=== PATIENT | female | born 1955 | race Caucasian/White ===

== ENCOUNTER 2017-12-28 03:08 | Emergency (ER) | payer MEDICARE, OTHER ==
[2017-12-28] MEDS ORDERED: HYDROmorphone 1 MG/ML CARPUJECT IM STA ×2 (03:32→05:02)
--- NOTE | 2017-12-28 04:28 | XRAY Report ---
Reason: pain after a fall Procedure Date: 12/28/2017 Accession Number: [id number] / [id number] Procedure: XR - Wrist 3 View RT CPT Code: FULL RESULT: EXAM: RIGHT WRIST RADIOGRAPHY EXAM DATE: 12/28/2017 03:45 AM. CLINICAL HISTORY: Pain after a fall. COMPARISON: None. TECHNIQUE: 3 views. FINDINGS: Bones: Normal. No fractures or bone lesions. Joints: Normal. No subluxations. Soft Tissues: Normal. No soft tissue swelling. IMPRESSION: No evidence for fractures of the right wrist. RADIA
--- NOTE | 2017-12-28 04:29 | XRAY Report ---
Reason: fall Procedure Date: 12/28/2017 Accession Number: [id number] / [id number] Procedure: XR - Chest 1 View X-Ray CPT Code: 09797 FULL RESULT: EXAM: CHEST RADIOGRAPHY EXAM DATE: 12/28/2017 03:41 AM. CLINICAL HISTORY: Fall. COMPARISON: None. TECHNIQUE: 1 view. FINDINGS: Lungs/Pleura: No focal opacities evident. No pleural effusion. No pneumothorax. Mediastinum: Within exam limitations, the cardiomediastinal contour is normal. Cerclage wire is noted involving the sternum. Prior lower cervical spine fusion. Other: There is a fracture of the tuberosity of the right humerus. IMPRESSION: 1. No acute infiltrates. 2. Fracture of the right humeral tuberosity. RADIA
--- NOTE | 2017-12-28 04:31 | XRAY Report ---
Reason: GLF /c/o R humeral pain Procedure Date: 12/28/2017 Accession Number: [id number] / [id number] Procedure: XR - Humerus RT CPT Code: FULL RESULT: EXAM: RIGHT HUMERUS RADIOGRAPHY EXAM DATE: 12/28/2017 03:37 AM. CLINICAL HISTORY: GLF /c/o R humeral pain. COMPARISON: None. TECHNIQUE: 2 views. FINDINGS: Bones: There is a fracture of the tuberosity of the humeral head. There is questionable fracture through the humeral neck. Dedicated shoulder x-rays will be helpful. Joints: Normal. No effusions or subluxations in the visualized shoulder or elbow joints. Soft Tissues: Normal. No soft tissue swelling. IMPRESSION: 1. Fracture of the tuberosity of the right humerus. Questionable humeral neck fracture. Consider dedicated x-rays of the right shoulder. RADIA
--- NOTE | 2017-12-28 04:59 | ED Physician Documentation ---
PD HPI UPPER EXT INJURY - Stated complaint Stated Complaint: R ARM INJURY - Chief complaint Chief Complaint: Trauma Ext - History obtained from History obtained from: Patient - History of Present Illness Location: Right, Shoulder, Arm, Wrist Type of injury: Fall Timing - onset: Today Timing - details: Abrupt onset Pain level max: 9 Pain level now: 9 Improved by: Immobilization Worsened by: Moving, Palpating Associated symptoms: No: Weakness, Numbness, Tingling, Swelling, Discolored Contributing factors: Anticoagulated Similar symptoms before: No diagnosis Recently seen: Not recently seen Review of Systems Constitutional: denies: Fever Eyes: denies: Discharge Ears: denies: Ear pain Nose: denies: Congestion Cardiac: denies: Chest pain / pressure GI: denies: Abdominal Pain : denies: Dysuria Skin: denies: Laceration (s) Musculoskeletal: reports: Extremity pain, Joint pain. denies: Neck pain, Back pain Neurologic: denies: Headache, Head injury PD PAST MEDICAL HISTORY - Past Medical History Past Medical History: Yes Cardiovascular: Hypertension, High cholesterol, [place] Respiratory: Asthma, COPD Neuro: CVA, TIA Endocrine/Autoimmune: Type 2 diabetes : None HEENT: None Psych: None Musculoskeletal: None - Past Surgical History Past Surgical History: Yes Cardiovascular: CABG, Other Derm: Skin cancer surgery - Allergies Allergies/Adverse Reactions: Allergies Allergy/AdvReac Type Severity Reaction Status Date / Time codeine Allergy Unknown Verified 12/28/17 03:52 Penicillins Allergy Respiratory Verified 12/28/17 03:51 tetanus and diphtheria Allergy Unknown Verified 12/28/17 03:52 toxoids - Social History Does the pt smoke?: No Smoking Status: Never smoker Does the pt drink ETOH?: No Does the pt have substance abuse?: No - Immunizations Immunizations are current?: No Immunizations: TDAP >10years/unknown - POLST Patient has POLST: No PD ED PE NORMAL - General General: Alert and oriented X 3, No acute distress - HEENT HEENT: Atraumatic, PERRL, EOMI - Neck Neck: No bony TTP - Derm Derm: Normal color - Extremities Extremities: No deformity. No: No tenderness to palpate (The patient has tenderness to palpation in the upper humerus, the patient has decreased range of motion of the shoulder secondary pain. There is no tenderness of the elbow or forearm. There is tenderness in the wrist. No tenderness in the hand. No obvious deformity. No laceration. Normal radial pulse and normal cap refill), Normal ROM s pain, No edema - Neuro Neuro: Alert and oriented X 3, Normal speech - Psych Psych: Normal affect Results - Vitals Vitals: Vital Signs - 24 hr 12/28/17 03:10 Temperature 36.0 C L Heart Rate 74 Respiratory 18 Rate Blood Pressure 152/84 H O2 Saturation 97 Oxygen O2 Source Room air - Rads (name of study) XR Chest/Shoulder/Humerus/Wrist Radiology: Final report received PD MEDICAL DECISION MAKING - ED course ED course: The patient has an acute fracture of the humeral neck, the patient was placed in a sling. Presently, the patient appears appropriate for discharge and ongoing outpatient management. I discussed with her the findings and plan. The patient will follow up with orthopedics. I discussed warning signs and recommended returning to the emergency Departure - Departure Disposition: 01 Home, Self Care Clinical Impression: Humeral head fracture Qualifiers: Encounter type: initial encounter Fracture type: closed Laterality: right Qualified Code(s): S42.291A - Other displaced fracture of upper end of right humerus, initial encounter for closed fracture Condition: Good Instructions: ED Fx Upper Ext Follow-Up: Kenny Salazar MD [Provider Admit Priv/Credential] - Within 3 Days (Call today to schedule a follow up appointment ) Comments: Please return to the emergency department for worsening symptoms or any concerns
[2017-12-28] MEDS ORDERED: diazePAM 5 MG TABLET PO STA (05:02)
--- NOTE | 2017-12-28 05:09 | XRAY Report ---
Reason: injury Procedure Date: 12/28/2017 Accession Number: [id number] / [id number] Procedure: XR - Shoulder 3 View RT CPT Code: FULL RESULT: EXAM: RIGHT SHOULDER RADIOGRAPHY EXAM DATE: 12/28/2017 04:37 AM. CLINICAL HISTORY: Injury. COMPARISON: None. TECHNIQUE: 3 views. FINDINGS: Bones: There is a nondisplaced fracture through the right humeral neck and there is a slightly displaced fracture of the tuberosities. The AC joint is intact. IMPRESSION: 1. Nondisplaced humeral neck fracture. 2. Slightly displaced tuberosity fractures. RADIA
[2017-12-28 05:17] VITALS: BP 122/80
== END 2017-12-28 05:27 | disposition home or self-care (01) ==
LOC: ED 03:08
DX: S42.291A Other displaced fracture of upper end of right humerus, initial encounter for closed fracture (principal); W19.XXXA Unspecified fall, initial encounter; I10 Essential (primary) hypertension; E78.00 Pure hypercholesterolemia, unspecified; I25.2 Old myocardial infarction; E11.9 Type 2 diabetes mellitus without complications; Z86.73 Personal history of transient ischemic attack (TIA), and cerebral infarction without residual deficits; Z95.1 Presence of aortocoronary bypass graft
CPT/HCPCS: 71045; 73030; 73060; 73110; 96372; 99283; 99284; A9270; J1170

== ENCOUNTER 2018-04-11 10:16 | Outpatient (CLI) | payer MEDICARE, OTHER ==
[2018-04-11 19:16] LABS: BUN - BLOOD UREA NITROGEN 9 mg/dL (6-20); CALCIUM 9.3 mg/dL (8.5-10.3); CARBON DIOXIDE - CO2 27 mmol/L (21-32); CHLORIDE 102 mmol/L (101-111); CHOLESTEROL 235 mg/dL; CREATININE 0.5 mg/dL (0.4-1.0); GFR - MDRD 125 (>89); GLUCOSE 217 mg/dL (70-100); HDL CHOLESTEROL 39 mg/dL; LDL CHOLESTEROL,CALCULATED 131 mg/dL; LDL/HDL RATIO 3.4 (<4.4); SODIUM 135 mmol/L (135-145); VLDL CHOLESTEROL 65 mg/dL
[2018-04-11 19:47] LABS: HB2 TOTAL 18.5 g/dL; HEMOGLOBIN A1C 2.28 g/dL; HEMOGLOBIN A1C % 13.4 % (4.6-6.2)
== END 2018-04-11 10:17 | disposition home or self-care (01) ==
LOC: LAB.F 10:16
PROVIDERS: ATTEND Internal Medicine
DX: E11.9 Type 2 diabetes mellitus without complications (principal)
CPT/HCPCS: 36415; 80048; 80061; 82043; 83036; 83721

== ENCOUNTER 2018-04-26 11:41 | Outpatient (CLI) | payer MEDICARE, OTHER ==
--- NOTE | 2018-04-26 15:52 | CT Report ---
Reason: TOBACOO USE - ACTIVE, COPD Procedure Date: 04/26/2018 Accession Number: [id number] / [id number] Procedure: CT - Chest/Lung Screen Low Dose W/O CPT Code: FULL RESULT: EXAM CT LUNG SCREEN EXAM DATE: 04/26/2018 11:56 AM. HISTORY: 62-year-old patient with [id number] smoking history. Currently smoking: Yes. Years since quitting: None. COMPARISON: None. TECHNIQUE: CT examination of the entire thorax without contrast was performed using low-dose technique. Thin section coronal, axial, sagittal and MIP axial images were obtained. In accordance with CT protocol optimization, one or more of the following dose reduction techniques were utilized for this exam: automated exposure control, adjustment of mA and/or KV based on patient size, or use of iterative reconstructive technique. FINDINGS: Nodules: Right upper lobe: Posterior right upper lobe 3 mm nodular opacity (image 52, series 4). Inferior right upper lobe adjacent to the fissure nodular opacity 2.5 mm (image 85, series 4). Right middle lobe: None. Right lower lobe: None. Left upper lobe: None. Left lower lobe: None. Emphysema: Emphysematous changes are noted largely in the upper lobes. Pleura: Biapical pleural thickening. Aorta: Thoracic aortic calcified plaque. No aneurysm. Mediastinum: Heart size is normal. Changes are seen from median sternotomy and bypass surgery. Visualized thyroid gland is unremarkable. No enlarged mediastinal or hilar lymph nodes. Coronary calcifications: Marked degree of coronary artery calcified plaque. Other pulmonary findings: Bilateral upper lobe subpleural reticulation largely anteriorly and on the left. No dense consolidation. No pleural effusions. No pneumothorax. No endobronchial obstruction. Pleural thickening anteriorly with associated parenchymal scarring. Other extrapulmonary findings: Included portions of the liver, spleen, adrenals, pancreas and kidneys are normal. Abdominal aortic calcified plaque. Included portions of the stomach and upper abdominal bowel are unremarkable. There is not complete fusion of the mid and lower sternum. Degenerative changes of the thoracic spine. No acute osseous abnormalities. Changes are seen from inferior cervical fusion. Mild superior central endplate depression of T12. IMPRESSION: Lung-RADS ASSESSMENT CATEGORY: 2 - benign appearance or behavior. Probability of malignancy: Less than 1%. RECOMMENDATION: Continue annual screening with low dose CT in 12 months. RADIA
== END 2018-04-26 11:42 | disposition home or self-care (01) ==
LOC: DI 11:41
PROVIDERS: ATTEND Registered Nurse
DX: Z12.2 Encounter for screening for malignant neoplasm of respiratory organs (principal); F17.210 Nicotine dependence, cigarettes, uncomplicated; J44.9 Chronic obstructive pulmonary disease, unspecified

== ENCOUNTER 2018-10-15 09:19 | Outpatient (CLI) | payer MEDICARE, OTHER ==
[2018-10-15 17:35] LABS: HGB - HEMOGLOBIN 17.7 g/dL (12.0-16.0); MEAN CORPUSCULAR HEMOGLOBIN 32.3 pg (27.0-31.0); MEAN CORPUSCULAR HGB CONC 32.2 g/dL (32.0-36.0); MEAN CORPUSCULAR VOLUME 100.4 fL (81.0-99.0); MEAN PLATELET VOLUME 13.4 fL (7.9-10.8); RED BLOOD COUNT 5.48 10^6/uL (4.20-5.40); RED CELL DISTRIBUTION WIDTH 13.7 % (12.0-15.0); WHITE BLOOD COUNT 13.4 x10^3/uL (4.8-10.8)
[2018-10-15 18:39] LABS: ALBUMIN 4.5 g/dL (3.2-5.5); ALBUMIN/GLOBULIN RATIO 1.4 (1.0-2.2); BILIRUBIN,TOTAL 0.7 mg/dL (0.2-1.0); CALCIUM 10.8 mg/dL (8.5-10.3); MAGNESIUM 1.3 mg/dL (1.7-2.8); TOTAL PROTEIN 7.7 g/dL (6.7-8.2)
[2018-10-15 18:41] LABS: HB2 TOTAL 18.2 g/dL; HEMOGLOBIN A1C 1.15 g/dL; HEMOGLOBIN A1C % 7.9 % (4.6-6.2)
== END 2018-10-15 09:20 | disposition home or self-care (01) ==
LOC: LAB.S 09:19
PROVIDERS: ATTEND Internal Medicine
DX: E11.9 Type 2 diabetes mellitus without complications (principal); R25.2 Cramp and spasm
CPT/HCPCS: 36415; 80053; 83036; 83735; 84443; 85027

== ENCOUNTER 2018-10-15 21:40 | Observation (INO) | payer MEDICARE, OTHER ==
[2018-10-15 22:23] LABS: BASOPHILS % (AUTO) 0.7 %; EOSINOPHILS % (AUTO) 2.7 %; HGB - HEMOGLOBIN 17.1 g/dL (12.0-16.0); LYMPHOCYTES % (AUTO) 35.7 %; MEAN CORPUSCULAR HGB CONC 32.6 g/dL (32.0-36.0); MEAN CORPUSCULAR VOLUME 98.3 fL (81.0-99.0); MEAN PLATELET VOLUME 12.8 fL (7.9-10.8); MONOCYTES % (AUTO) 11.3 %; PLT - PLATELET COUNT 265 10^3/uL (130-450); RED BLOOD COUNT 5.34 10^6/uL (4.20-5.40); RED CELL DISTRIBUTION WIDTH 13.7 % (12.0-15.0); WHITE BLOOD COUNT 13.9 x10^3/uL (4.8-10.8)
[2018-10-15 22:27] LABS: ABNORMAL LYMPHS % (MANUAL) 0 %
[2018-10-15 22:40] LABS: ALBUMIN 4.4 g/dL (3.2-5.5); ALBUMIN/GLOBULIN RATIO 1.4 (1.0-2.2); BILIRUBIN,TOTAL 0.8 mg/dL (0.2-1.0); CALCIUM 10.9 mg/dL (8.5-10.3); CREATININE 1.9 mg/dL (0.4-1.0); TOTAL PROTEIN 7.5 g/dL (6.7-8.2)
[2018-10-15 22:48] LABS: BAND NEUTROPHILS % (MANUAL) 2 %; DIFFERENTIAL COMMENT MANUAL DIFFERENTIAL; EOSINOPHILS # (MANUAL) 0.3 10^3/uL (0-0.7); LYMPHOCYTES # (MANUAL) 4.4 10^3/uL (1.5-3.5); LYMPHOCYTES % (MANUAL) 32 %; MONOCYTES # (MANUAL) 1.7 10^3/uL (0.0-1.0); PLATELET ESTIMATE, MANUAL NORMAL (130-450,000) (NORMAL); PLATELET MORPHOLOGY NORMAL APPEARANCE (NORMAL); RBC MORPHOLOGY (MULTIPLE) NORMAL APPEARANCE (NORMAL)
[2018-10-15] MEDS ORDERED: SODIUM CHLORIDE 0.9% 1,000 ML IV ONE ×2 (23:00→23:05)
[2018-10-15] MEDS ORDERED: DEXTROSE 50% ABBOJECT 25 GM/50 ML SYRINGE IVP STA (23:03)
[2018-10-15] MEDS ORDERED: INSULIN REGULAR HUMAN 100 UNIT/1 ML 10 ML MDV IVP STA ×2 (23:03→23:55)
[2018-10-15] MEDS ORDERED: SODIUM CHLORIDE FLUSH 0.9% 10 ML SYRINGE IVP PRN (23:04)
[2018-10-15] MEDS ORDERED: SODIUM BICARBONATE ABBOJECT 50 MEQ/50 ML SYRINGE IVP STA (23:05)
[2018-10-15] MEDS ORDERED: DEXTROSE 10% 1,000 ML IV STA (23:07)
--- NOTE | 2018-10-15 23:08 | ED Physician Documentation ---
PD HPI NVD - Stated complaint Stated Complaint: HIGH K+ - Chief complaint Chief Complaint: General - History obtained from History obtained from: Patient - History of Present Illness Timing - onset: How many weeks ago (1) Timing - duration: Weeks (1 week of general fatigue, nausea, less appetite, and leg cramps both legs.) Timing - details: Gradual onset, Still present, Waxing and waning Associated symptoms: Loss of appetite (this past week, with less fluid intake as well.). No: Fever, Abdominal pain, Near syncope / syncope Contributing factors: No: Sick contact, Bad food, Travel Improved by: No: Eating Worsened by: Eating Similar symptoms before: Has not had sx before Recently seen: Clinic (yesterday - seen by PCP for the leg cramps and feeling weakness. Had blood tests drawn. Result showed elevated K of 7.4 and was called and told to come to ER. EMS sent to her house as she did not answer her phone.) Review of Systems Constitutional: reports: Myalgias, Fatigue. denies: Fever, Chills Nose: denies: Rhinorrhea / runny nose, Congestion Throat: denies: Sore throat Respiratory: denies: Cough GI: reports: Nausea. denies: Abdominal Pain, Vomiting, Constipation, Diarrhea, Bloody / black stool : denies: Dysuria, Frequency Skin: denies: Rash, Lesions Neurologic: reports: Generalized weakness. denies: Focal weakness, Numbness, Near syncope, Altered mental status, Headache PD PAST MEDICAL HISTORY - Past Medical History Past Medical History: Yes Cardiovascular: Hypertension, High cholesterol, [place] Respiratory: Asthma, COPD Neuro: CVA, TIA Endocrine/Autoimmune: Type 2 diabetes : None HEENT: None Psych: None Musculoskeletal: None - Past Surgical History Past Surgical History: Yes Cardiovascular: CABG, Other Derm: Skin cancer surgery - Present Medications Home Medications: Ambulatory Orders Medication Instructions Recorded Confirmed Oxycodone HCl/Acetaminophen 1 each PO Q6H PRN #20 tablet 12/28/17 [Percocet 5-325 mg Tablet] - Allergies Allergies/Adverse Reactions: Allergies Allergy/AdvReac Type Severity Reaction Status Date / Time codeine Allergy Unknown Verified 12/28/17 03:52 Penicillins Allergy Respiratory Verified 12/28/17 03:51 tetanus and diphtheria Allergy Unknown Verified 12/28/17 03:52 toxoids mushroom AdvReac Itching Verified 10/15/18 21:58 - Social History Does the pt smoke?: No Smoking Status: Never smoker Does the pt drink ETOH?: No Does the pt have substance abuse?: No - Immunizations Immunizations are current?: No Immunizations: TDAP >10years/unknown - POLST Patient has POLST: No PD ED PE NORMAL - Vitals Vital signs reviewed: Yes - General General: Alert and oriented X 3, No acute distress, Well developed/nourished - HEENT HEENT: Moist mucous membranes, Pharynx benign - Neck Neck: Supple, no meningeal sign, No adenopathy - Cardiac Cardiac: No murmur. No: RRR (regular but some tachy) - Respiratory Respiratory: Clear bilaterally - Abdomen Abdomen: Normal bowel sounds, Soft, Non tender, Non distended - Back Back: No CVA TTP - Derm Derm: Normal color, Warm and dry - Extremities Extremities: No deformity, No tenderness to palpate, No edema, No calf tenderness / cord - Neuro Neuro: Alert and oriented X 3, No motor deficit, Normal speech Eye Opening: Spontaneous Motor: Obeys Commands Verbal: Oriented GCS Score: 15 - Psych Psych: Normal mood Results - Vitals Vitals: Vital Signs - 24 hr 10/15/18 10/15/18 10/15/18 21:52 22:21 22:52 Temperature 36.6 C Heart Rate 141 H 113 H 108 H Respiratory 18 14 17 Rate Blood Pressure 117/80 114/98 H O2 Saturation 97 100 100 Oxygen O2 Source Room air - EKG (time done) 22:01 Rate: Rate (enter#) (123) Rhythm: Sinus tachycardia Sawyer: Normal Intervals: Normal CA QRS: Normal Ischemia: Normal ST segments. No: ST elevation c/w ischemia, ST depression Compare to prior EKG: Old EKG unavailable - Labs Labs: Laboratory Tests 10/15/18 10/15/18 22:14 22:14 WBC 13.9 H RBC 5.34 Hgb 17.1 H Hct 52.5 H MCV 98.3 MCH 32.0 H MCHC 32.6 RDW 13.7 Plt Count 265 MPV 12.8 H Neut # (Auto) Not Reportable Lymph # (Auto) Not Reportable [place] # (Auto) Not Reportable Eos # (Auto) Not Reportable Baso # (Auto) Not Reportable Absolute Nucleated RBC Not Reportable Total Counted 100 Band Neuts % (Manual) 2 Abnorm Lymph % (Manual) 0 Nucleated RBC % Not Reportable Neutrophils # (Manual) 7.5 H Lymphocytes # (Manual) 4.4 H Monocytes # (Manual) 1.7 H Eosinophils # (Manual) 0.3 Basophils # (Manual) 0.0 Differential Comment MANUAL DIFFERENTIAL Platelet Estimate NORMAL (130-450,000) Platelet Morphology NORMAL APPEARANCE RBC Morph Micro Appear NORMAL APPEARANCE Sodium 138 Potassium 6.6 H* Chloride 108 Carbon Dioxide 17 L Anion Gap 13.0 BUN 33 H Creatinine 1.9 H Estimated GFR (MDRD) 27 L Glucose 231 H Calcium 10.9 H Total Bilirubin 0.8 AST 28 ALT 29 Alkaline Phosphatase 61 Total Protein 7.5 Albumin 4.4 Globulin 3.1 Albumin/Globulin Ratio 1.4 Lipase 42 PD MEDICAL DECISION MAKING - ED course Complexity details: reviewed results, re-evaluated patient (She is given IV fluids as well as treatment for elevated potassium including glucose insulin and bicarbonate. Her calcium is also elevated so that was held. She is given some Zofran for her nausea.), considered differential (She has had nausea and general weakness with decreased appetite and states she had not eaten much and had been drinking less over the last week. Not clear the cause of the initial nausea and malaise. Subsequently the renal insufficiency and elevated potassium could account for some of the cramping. She is on several medications that would be nephrotoxic and dehydration including spironolactone, TIFFANY inhibitor, ARB and meloxicam. I presume she had some illness that led to under hydration that led to the renal insufficiency and the elevated potassium. We can check a urine test as well.), d/w patient, d/w pci security consultant Departure - Departure Disposition: ED Place in Observation Clinical Impression: Acute hyperkalemia, Acute renal insufficiency Condition: Stable Record reviewed to determine appropriate education?: Yes Discharge Date/Time: 10/16/18 00:05
[2018-10-15] MEDS ORDERED: SODIUM CHLORIDE 0.9% 1,000 ML IV SCH (23:45)
[2018-10-15] MEDS ORDERED: ONDANSETRON 4 MG/2 ML VIAL IVP STA (23:54)
[2018-10-16 01:03] LABS: CREATININE 1.4 mg/dL (0.4-1.0)
--- NOTE | 2018-10-16 01:24 | HISTORY & PHYSICAL EXAMINATION ---
Chief Complaint - Chief Complaint Chief Complaint: Leg cramping History of Present Illness - Admitted From Admitted From:: Home - History Obtained From Records Reviewed: Yes History obtained from: Patient - History of Present Illness HPI Comment/Other: This is a 63 year old female with a past medical history significant for CAD s/p CABG, Hypertension, diabetes, and COPD who presents from home after she was found to have an elevated potassium on labs that were drawn yesterday morning. She has been complaining of lower extremity leg cramping for the last week and decided to see her PCP. She had labs draw then that revealed a potassium of 7.4 and so she was referred to the ER. She states she feels well overall except for nausea. Reports her leg cramping has nearly resolved after treatment in the ER. She states she is on potassium supplementation at home and takes 20 mEq twice a day. She is also on Lisinopril 20mg as well as a combination am lodipine/benazepril. She is no longer on Furosemide as she has not needed since moving from [place] as her legs have not been edematous. She does continue to take Aldactone 50mg daily. She currently reports feeling better. Denies chest pain, dyspnea, fevers, chills, abdominal pain. In the ER, her potassium was found to be 6.6 and her creatinine was elevated at 1.9. She had no EKG changes. She was given IV fluids, insulin, dextrose, and sodium bicarbonate. She will be admitted for further management. 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 Her father had CAD and required a CABG. Living arrangement: At home Living Situation: Alone Social History Notes: She moved from [place] one year ago to [facility]. She lives alone although she has a step daughter who lives in [place]. She is in the process of getting a new job. She smokes a few cigarettes a day although she previously smoked up to 2 packs a day. Drinks 2-3 alcoholic beverages a week. Smokes marijuana almost daily. - Substance History Use: Uses substance without health or social issues: Alcohol, Cannabis - POLST Patient has POLST: No Meds/Allgy - Home Medications Home Medications: Ambulatory Orders Medication Instructions Recorded Confirmed Oxycodone HCl/Acetaminophen 1 each PO Q6H PRN #20 tablet 12/28/17 [Percocet 5-325 mg Tablet] - Allergies Allergies/Adverse Reactions: Allergies Allergy/AdvReac Type Severity Reaction Status Date / Time codeine Allergy Unknown Verified 12/28/17 03:52 Penicillins Allergy Respiratory Verified 12/28/17 03:51 tetanus and diphtheria Allergy Unknown Verified 12/28/17 03:52 toxoids mushroom AdvReac Itching Verified 10/15/18 21:58 Review of Systems - Constitutional Constitutional: denies: Fatigue, Fever, Chills, Weakness, Poor appetite - Cardiovascular Cariovascular: denies: Chest pain, Edema, Lightheadedness - Respiratory Respiratory: denies: SOB at rest, SOB with exertion - Gastrointestinal Gastrointestinal: reports: Nausea. denies: Abdominal pain, Vomiting - Genitourinary Genitourinary: denies: Dysuria, Frequency, Urgency - Musculoskeletal Musculoskeletal: reports: Muscle aches - Integumentary Integumentary: denies: Rash - Neurological Neurological: reports: Memory problems. denies: General weakness, Focal weakness - All Other Systems All Other Systems: reports: Reviewed and negative Prior Level of Functionality: Independent with ADL's. Exam - Vital Signs Reviewed Vital Signs: Yes Vital Signs: Vital Signs x48h Temp Pulse Resp BP Pulse Ox 10/15/18 22:52 108 H 17 114/98 H 100 10/15/18 22:21 113 H 14 100 10/15/18 21:52 36.6 C 141 H 18 117/80 97 - Physical Exam General Appearance: positive: No acute distress, Alert Eyes Bilateral: positive: Normal inspection ENT: positive: ENT inspection nml, No signs of dehydration. negative: Dry mucous membranes Neck: positive: Nml inspection Respiratory: positive: No respiratory distress, Breath sounds nml. negative: Wheezes, Rales, Rhonchi Cardiovascular: positive: Regular rate & rhythm, No murmur. negative: Tachycardia, Bradycardia Abdomen: positive: Non-tender, Nml bowel sounds, No distention. negative: Tenderness, Guarding, Rebound, Abnml bowel sounds Skin: positive: No rash, Warm, Dry Extremities: positive: Full ROM, No pedal edema. negative: Pedal edema Neurologic/Psychiatric: positive: Oriented x3. negative: Disoriented to person, Disoriented to place, Disoriented to time, Weakness Conclusion/Plan - Problem List (1) Acute hyperkalemia Conclusion/Plan: This is likely multifactorial in nature and brought on by her acute kidney injury, potassium supplementation, use of two ACEi and Aldactone as well as the face that she stopped her loop diuretic. Presented with K of 7.4 which is improving. She has no EKG changes. Received dextrose, insulin, sodium bicarbonate in the ER. - Continue IV hydration - Discontinue potassium supplementation and Aldactone - Will hold ACEi for now but suspect this will likely be able to be restarted at some point down the line - Monitor BMP (2) Acute renal insufficiency Conclusion/Plan: Suspect this is pre-renal in nature. Creatinine is elevated at 1.9 with a baseline of 1.0. - IV hydration - Hold ACEi in setting of DANYA - Monitor renal function (3) CAD (coronary artery disease) Conclusion/Plan: She is on Plavix but does not appear to be on a statin for unclear reasons. Stable. - Continue Plavix - Consider starting a statin (4) COPD (chronic obstructive pulmonary disease) Conclusion/Plan: She is on Albuterol and Fluticasone at home. Not on home O2. Stable. - Albuterol PRN (5) Diabetes Conclusion/Plan: She has type 2 diabetes and is on Janumet and Glyburide at home. Blood glucose elevated on admission in the 230's. Received IV insulin and dextrose in the ER. - Sliding scale - Will repeat IV insulin if she become significantly hyperkalemic - CC diet Qualifiers: Diabetes mellitus type: type 2 (6) Hypertension Conclusion/Plan: She is on Lisinopril, Amlodipine/Benazepril, Metoprolol, Aldactone at home. Currently normotensive but is tachycardic in the low 100's. - Resume home Metoprolol - Hold the other antihypertensives due to her hyperkalemia and DANYA (7) GERD (gastroesophageal reflux disease) Conclusion/Plan: On Omeprazole at home. Stable. - Hold home PPI for now, restart on discharge - Lab Results Lab results reviewed: Yes Cortes Bones: 10/15/18 22:14 10/16/18 00:45 - EKG Results EKG Interpreted Independently: Yes EKG Comparison: No prior EKG EKG Findings: Sinus tachycardia with Q waves noted. No peaked T wave or prolonged [place] interval. Core Measures - Anticipated LOS I expect patient to be DC'd or transferred within 96 hours.: Yes - Issues Hospital Issues and Management Plan: Hyperkalemia and DANYA requiring IV hydration and inpatient treatment. - DVT/VTE - Prophylaxis VTE/DVT Device ordered at admit?: Yes VTE/DVT Prophylaxis med ordered at admit?: Yes
[2018-10-16] MEDS ORDERED: ALBUTEROL NEB 2.5 MG/3 ML INH PRN (01:37)
[2018-10-16] MEDS: SODIUM CHLORIDE 0.9% 1,000 ML IV SCH ×2 (01:38→13:25)
[2018-10-16] MEDS: SODIUM CHLORIDE FLUSH 0.9% 10 ML SYRINGE IVP SCH ×4 (01:48→16:43)
[2018-10-16] MEDS ORDERED: LACTATED RINGERS 1,000 ML IV ONE (04:14)
[2018-10-16] MEDS ORDERED: HYDROmorphone 0.5 MG/0.5 ML SYRINGE ONE (04:15)
[2018-10-16] MEDS: INSULIN ASPART 300 UNIT/3 ML PEN SUBQ SCH ×3 (08:08→16:43)
[2018-10-16 08:40] LABS: CALCIUM 9.3 mg/dL (8.5-10.3); CREATININE 0.9 mg/dL (0.4-1.0)
[2018-10-16] MEDS ORDERED: DEXTROSE 50% ABBOJECT 25 GM/50 ML SYRINGE IVP ONE (08:51)
[2018-10-16] MEDS ORDERED: INSULIN REGULAR HUMAN 100 UNIT/1 ML 10 ML MDV IVP STA (08:51)
[2018-10-16] MEDS ORDERED: SODIUM POLYSTYRENE SULFONATE 15 GM/60 ML BOTTLE PO ONE (08:59)
[2018-10-16] MEDS ORDERED: METOPROLOL TARTRATE 50 MG TABLET PO SCH (09:00)
[2018-10-16] MEDS ORDERED: ONDANSETRON 4 MG/2 ML VIAL IVP PRN (14:58)
[2018-10-16] MEDS ORDERED: ONDANSETRON ODT 4 MG TABLET TL PRN (14:58)
[2018-10-16 15:51] VITALS: BP 118/66
--- NOTE | 2018-10-16 15:56 | Discharge Plan ---
Discharge Plan Problem Reviewed?: Yes Disposition: Home, Self Care Condition: Good Prescriptions: Sod Polystyrene Sulf. [Kayexalate] 15 gm PO DAILY #2 bottle Diet: Low Sodium Activity Restrictions: Activity as Tolerated Shower Restrictions: No Driving Restrictions: No Health Concerns: You came to our emergency room because you were feeling weak, shaky, and having muscle cramps. We found you to have a potassium of greater than 7. Normal is about 4. In reviewing your medication list you take amlodipine with benazepril. Benazepril raises your potassium. You take lisinopril, and that raises your potassium. And you also take spironolactone. That raises your potassium. A combination of all these medicines plus potassium supplements made your potassium dangerously high. Plan of Treatment: We gave you medications to bring down your potassium which included high concentrated glucose followed by IV insulin, Kayexalate, and we held some of your medications and did not give them to you. Your potassium is now 5.5. Care Goals: 1. we are stopping your lisinopril. However you still take benazepril and that can still continue to elevate your potassium. 2. We have stopped your spironolactone. 3. We would like you to check your potassium with a blood draw on October 18. 4. We would like you to take Kayexalate, a medicine that leeches out potassium in your got, once a day for the next 3 days. 5. Please see your primary care provider in the next week. Because we have stopped 1 of your blood pressure pills, you will need your blood pressure checked. He may need to adjust your blood pressure medications. Assessment: Patient understands goals and agrees to followup on plan. No Smoking: If you smoke, Please STOP! Call for help. Follow-up with: Fly Dawson MD [Primary Care Provider] -
[2018-10-16] MEDS ORDERED: MONTELUKAST 10 MG TABLET PO SCH (21:00)
--- NOTE | 2018-10-18 09:26 | DISCHARGE SUMMARY ---
Discharge Summary Admit Date: 10/15/18 Discharge Date: 10/16/18 Discharging Provider: Evelyne Taylor MD Primary Care Provider: Tez Dawson MD Code Status: Attempt Resuscitation Condition at Discharge: Good Discharge Disposition: 01 Home, Self Care - DIAGNOSES Discharge Diagnoses with Status of Each Condition: 1. iatrogenic hyperkalemia 2. acute on chronic kidney disease stage II 3. Coronary artery disease history 4. COPD without exacerbation 5. Type 2 diabetes mellitus, without complications, without long-term use of insulin 6. Essential hypertension 7. Gastroesophageal reflux disease without esophagitis - HPI History of Present Illness: This is a 63 year old female with a past medical history significant for CAD s/p CABG, Hypertension, diabetes, and COPD who presents from home after she was fou nd to have an elevated potassium on labs that were drawn yesterday morning. She has been complaining of lower extremity leg cramping for the last week and decided to see her PCP. She had labs draw then that revealed a potassium of 7.4 and so she was referred to the ER. She states she feels well overall except for nausea. Reports her leg cramping has nearly resolved after treatment in the ER. She states she is on potassium supplementation at home and takes 20 mEq twice a day. She is also on Lisinopril 20mg as well as a combination amlodipine/benazepril. She is no longer on Furosemide as she has not needed since moving from [place] as her legs have not been edematous. She does continue to take Aldactone 50mg daily. She currently reports feeling better. Denies chest pain, dyspnea, fevers, chills, abdominal pain. In the ER, her potassium was found to be 6.6 and her creatinine was elevated at 1.9. She had no EKG changes. She was given IV fluids, insulin, dextrose, and sodium bicarbonate. She will be admitted for further management. - CONSULTS | PROCEDURES Procedures: 1. EKG is without peak T waves. She has atrial tachycardia, left ventricular h ypertrophy, and old inferior infarct and poor R wave progression compatible with an old anterior infarct. 2. Telemetry showed 1 burst of wide-complex tachycardia of 12 beats. Vitals normal. Patient remained asymptomatic. - HOSPITAL COURSE Hospital Course: In the emergency room she received half an amp of D50 with 7 units of IV insulin. And received 2 L of normal saline wide open. Initial potassium was 6.6 and came down to 5.9 with that. She was placed in observation on the floor and the following morning her potassium was 6. She received another half an amp of D50 with 7 units of IV push insulin and potassium went to 5.5. Of note the patient was on amlodipine with benazepril. I have asked her to stop the benazepril and amlodipine at this time. Stay only on amlodipine. She was also in spironolactone, and lisinopril. She also was taking [id number] potassium supplements for some unknown reason. As such she is has iatrogenic hyperkalemia. She is asked to follow-up with her primary care provider in the outpatient setting. Have her blood pressure, BMP checked. I have asked her to get labs on October 18. She is to go home on Kayexalate 15 g daily for the next 3 to 4 days as well. Discharge exam showed her to be an alert, oriented middle-aged woman who looks slightly older than stated age,5'3" tall and 77.5 kg. Neck is supple. During the exam she does have and exhalation prolongation. When she laughs spontaneou sly there is quite a bit of wheezing. But she says she is not short of breath. She has a regular rate and rhythm. The abdomen is benign. The feet have no edema. Quite a bit of her complaints from presentation of completely resolved. Greater than 30 minutes was spent correlating discharge. - ALLERGIES Allergies/Adverse Reactions: Allergies Allergy/AdvReac Type Severity Reaction Status Date / Time codeine Allergy Unknown Verified 12/28/17 03:52 Penicillins Allergy Respiratory Verified 12/28/17 03:51 tetanus and diphtheria Allergy Unknown Verified 12/28/17 03:52 toxoids mushroom AdvReac Itching Verified 10/15/18 21:58 - MEDICATIONS Home Medications: Ambulatory Orders Medication Instructions Recorded Confirmed Albuterol Sulfate [Proair Hfa 2 puffs INH Q4H PRN 10/16/18 10/16/18 Inhaler] Amlodipine Besylate/Benazepril 1 tab PO DAILY 10/16/18 10/16/18 [Amlodipine-Benazepril 5-20 mg] Citalopram Hydrobromide 20 mg PO DAILY 10/16/18 10/16/18 [Citalopram HBr] Clopidogrel [Plavix] 75 mg PO DAILY 10/16/18 10/16/18 Fluticasone [Flonase] 2 spray REYES DAILY 10/16/18 10/16/18 Lidocaine Patch 5% [Lidoderm Patch] 1 patch TOP DAILY PRN 10/16/18 10/16/18 Meloxicam 15 mg PO DAILY 10/16/18 10/16/18 Metoprolol Tartrate 100 mg PO DAILY 10/16/18 10/16/18 Montelukast [Singulair] 10 mg PO DAILY 10/16/18 10/16/18 Omeprazole 20 mg PO DAILY 10/16/18 10/16/18 Sod Polystyrene Sulf. [Kayexalate] 15 gm PO DAILY #2 bottle 10/16/18 glyBURIDE [Glyburide] 2.5 mg PO BID 10/16/18 10/16/18 traMADol [Ultram] 50 mg PO DAILY PRN 10/16/18 10/16/18 - LABS Result Diagrams: 10/15/18 22:14 10/16/18 14:30
== END 2018-10-16 17:45 | disposition home or self-care (01) ==
LOC: ED 21:40 → OBS 23:04
PROVIDERS: ADMIT Internal Medicine; ATTEND Specialist
DX: E87.5 Hyperkalemia (principal); T46.4X5A Adverse effect of angiotensin-converting-enzyme inhibitors, initial encounter; T50.0X5A Adverse effect of mineralocorticoids and their antagonists, initial encounter; Y92.9 Unspecified place or not applicable; I13.10 Hypertensive heart and chronic kidney disease without heart failure, with stage 1 through stage 4 chronic kidney disease, or unspecified chronic kidney disease; E11.22 Type 2 diabetes mellitus with diabetic chronic kidney disease; N18.2 Chronic kidney disease, stage 2 (mild); N17.9 Acute kidney failure, unspecified; I47.1 Supraventricular tachycardia; J44.9 Chronic obstructive pulmonary disease, unspecified; E11.65 Type 2 diabetes mellitus with hyperglycemia; I25.10 Atherosclerotic heart disease of native coronary artery without angina pectoris; K21.9 Gastro-esophageal reflux disease without esophagitis; F17.210 Nicotine dependence, cigarettes, uncomplicated; E78.00 Pure hypercholesterolemia, unspecified; G89.29 Other chronic pain; M54.9 Dorsalgia, unspecified; F40.240 Claustrophobia; R25.2 Cramp and spasm; Z79.51 Long term (current) use of inhaled steroids; Z79.02 Long term (current) use of antithrombotics/antiplatelets; Z79.84 Long term (current) use of oral hypoglycemic drugs; Z79.891 Long term (current) use of opiate analgesic; I25.2 Old myocardial infarction; Z95.1 Presence of aortocoronary bypass graft; Z86.73 Personal history of transient ischemic attack (TIA), and cerebral infarction without residual deficits; Z85.828 Personal history of other malignant neoplasm of skin
CPT/HCPCS: 36415; 80048; 82550; 83036; 83605; 83690; 83735; 84132; 85027; 93005; 94640; 96361; 96374; 96375; 96376; 99284; 99285; A9270; G0378; J1170; J1815; J7120; 80053; 84443; 85025

== ENCOUNTER 2018-10-18 15:43 | Outpatient (CLI) | payer MEDICARE, OTHER | END 2018-10-18 15:44 | disposition home or self-care (01) | LOC: LAB.S 15:43 | PROVIDERS: ATTEND Internal Medicine | DX: Z53.9 Procedure and treatment not carried out, unspecified reason (principal) ==

== ENCOUNTER 2018-10-28 15:24 | Outpatient (CLI) | payer MEDICARE, OTHER ==
[2018-10-28 17:44] LABS: CALCIUM 9.8 mg/dL (8.5-10.3); CREATININE 0.7 mg/dL (0.4-1.0)
== END 2018-10-28 15:25 | disposition home or self-care (01) ==
LOC: LAB.S 15:24
PROVIDERS: ATTEND Family Medicine
DX: E87.5 Hyperkalemia (principal)
CPT/HCPCS: 36415; 80048

== ENCOUNTER 2019-03-14 13:28 | Emergency (ER) | payer MEDICARE, OTHER ==
[2019-03-14] MEDS ORDERED: SODIUM CHLORIDE 0.9% 1,000 ML IV ONE ×2 (13:56)
[2019-03-14 14:11] LABS: VBG BASE EXCESS 1.9 mmol/L (-2 - +2); VBG PH 7.382 (7.31-7.41); VBG TOTAL CO2 29.4 mmol/L (24-29)
[2019-03-14 14:13] LABS: BASOPHILS # (AUTO) 0.1 10^3/uL (0.0-0.1); BASOPHILS % (AUTO) 0.6 %; EOSINOPHILS # (AUTO) 0.1 10^3/uL (0.0-0.7); EOSINOPHILS % (AUTO) 0.7 %; HGB - HEMOGLOBIN 16.6 g/dL (12.0-16.0); LYMPHOCYTES # (AUTO) 3.8 10^3/uL (1.5-3.5); LYMPHOCYTES % (AUTO) 28.7 %; MEAN CORPUSCULAR HEMOGLOBIN 31.4 pg (27.0-31.0); MEAN CORPUSCULAR HGB CONC 33.3 g/dL (32.0-36.0); MEAN CORPUSCULAR VOLUME 94.3 fL (81.0-99.0); MEAN PLATELET VOLUME 13.3 fL (7.9-10.8); MONOCYTES # (AUTO) 0.9 10^3/uL (0.0-1.0); MONOCYTES % (AUTO) 6.7 %; NEUTROPHILS # (AUTO) 8.3 10^3/uL (1.5-6.6); NEUTROPHILS % (AUTO) 62.5 %; PLT - PLATELET COUNT 217 10^3/uL (130-450); RED BLOOD COUNT 5.29 10^6/uL (4.20-5.40); RED CELL DISTRIBUTION WIDTH 12.9 % (12.0-15.0); WHITE BLOOD COUNT 13.3 x10^3/uL (4.8-10.8)
[2019-03-14] MEDS ORDERED: INSULIN REGULAR HUMAN 100 UNIT/1 ML 10 ML MDV IVP STA (14:16)
--- NOTE | 2019-03-14 14:16 | ED Physician Documentation ---
History of Present Illness - Stated complaint Stated Complaint: BLOOD SUGAR - PCP REFERRAL - Chief complaint Chief Complaint: General - History obtained from History obtained from: Patient - History of Present Illness Timing: How many weeks ago (several) Pain level max: 0 Pain level now: 0 - Additonal information Additional information: 63-year-old female presents to the emergency department stating that her blood sugar was high today. It was 512 at the clinic. She has been out of her glyburide for the past 3 weeks. No vomiting. No fevers. No abdominal pain. Nothing makes it better or worse. She has a new prescription of her glyburide waiting for her at the pharmacy. Review of Systems Constitutional: denies: Fever, Chills Cardiac: denies: Chest pain / pressure Respiratory: denies: Cough GI: denies: Abdominal Pain, Vomiting, Diarrhea Skin: denies: Rash Musculoskeletal: denies: Neck pain, Back pain Neurologic: denies: Headache PD PAST MEDICAL HISTORY - Past Medical History Cardiovascular: Hypertension, High cholesterol, ND Respiratory: Asthma, COPD Neuro: CVA, TIA Endocrine/Autoimmune: Type 2 diabetes GI: None : None HEENT: None Psych: None Musculoskeletal: None Derm: None - Past Surgical History Past Surgical History: Yes General: Other Ortho: Arthroscopic surgery /GENERAL FARMER: Hysterectomy, Oophrectomy Cardiovascular: CABG, Other Derm: Skin cancer surgery - Present Medications Home Medications: Ambulatory Orders Medication Instructions Recorded Confirmed Albuterol Sulfate [Proair Hfa 2 puffs INH Q4H PRN 10/16/18 10/16/18 Inhaler] Amlodipine Besylate/Benazepril 1 tab PO DAILY 10/16/18 10/16/18 [Amlodipine-Benazepril 5-20 mg] Citalopram Hydrobromide 20 mg PO DAILY 10/16/18 10/16/18 [Citalopram HBr] Clopidogrel [Plavix] 75 mg PO DAILY 10/16/18 10/16/18 Fluticasone [Flonase] 2 spray REYES DAILY 10/16/18 10/16/18 Lidocaine Patch 5% [Lidoderm Patch] 1 patch TOP DAILY PRN 10/16/18 10/16/18 Meloxicam 15 mg PO DAILY 10/16/18 10/16/18 Metoprolol Tartrate 100 mg PO DAILY 10/16/18 10/16/18 Montelukast [Singulair] 10 mg PO DAILY 10/16/18 10/16/18 Omeprazole 20 mg PO DAILY 10/16/18 10/16/18 Sod Polystyrene Sulf. [Kayexalate] 15 gm PO DAILY #2 bottle 10/16/18 glyBURIDE [Glyburide] 2.5 mg PO BID 10/16/18 10/16/18 traMADol [Ultram] 50 mg PO DAILY PRN 10/16/18 10/16/18 - Allergies Allergies/Adverse Reactions: Allergies Allergy/AdvReac Type Severity Reaction Status Date / Time codeine Allergy Unknown Verified 03/14/19 13:40 Penicillins Allergy Respiratory Verified 03/14/19 13:40 tetanus and diphtheria Allergy Unknown Verified 03/14/19 13:40 toxoids mushroom AdvReac Itching Verified 03/14/19 13:40 - Social History Does the pt smoke?: No Smoking Status: Never smoker Does the pt drink ETOH?: No Does the pt have substance abuse?: No - Immunizations Immunizations are current?: No Immunizations: TDAP >10years/unknown - POLST Patient has POLST: No PD ED PE NORMAL - Vitals Vital signs reviewed: Yes - General General: Alert and oriented X 3, No acute distress, Well developed/nourished - HEENT HEENT: PERRL, Moist mucous membranes, Pharynx benign - Neck Neck: Supple, no meningeal sign - Cardiac Cardiac: RRR, Strong equal pulses - Respiratory Respiratory: No respiratory distress, Clear bilaterally - Abdomen Abdomen: Soft, Non tender, Non distended - Back Back: No CVA TTP - Derm Derm: Warm and dry - Extremities Extremities: No edema - Neuro Neuro: Alert and oriented X 3 - Psych Psych: Normal mood, Normal affect Results - Vitals Vitals: Vital Signs - 24 hr 03/14/19 03/14/19 13:38 14:17 Temperature 36.0 C L 36.7 C Heart Rate 101 H 85 Respiratory 16 15 Rate Blood Pressure 138/96 H 110/82 H O2 Saturation 96 93 Oxygen O2 Source Room air - Labs Labs: Laboratory Tests 03/14/19 03/14/19 03/14/19 13:37 13:59 13:59 WBC 13.3 H RBC 5.29 Hgb 16.6 H Hct 49.9 H MCV 94.3 MCH 31.4 H MCHC 33.3 RDW 12.9 Plt Count 217 MPV 13.3 H Neut # (Auto) 8.3 H Lymph # (Auto) 3.8 H [place] # (Auto) 0.9 Eos # (Auto) 0.1 Baso # (Auto) 0.1 Absolute Nucleated RBC 0.00 Nucleated RBC % 0.0 VBG pH VBG pCO2 VBG pO2 VBG HCO3 VBG Total CO2 VBG O2 Saturation VBG Base Excess Sodium 132 L Potassium 3.2 L Chloride 95 L Carbon Dioxide 27 Anion Gap 10.0 BUN 12 Creatinine 1.1 H Estimated GFR (MDRD) 50 L Glucose 476 H POC Whole Bld Glucose 482 H Glycated Hemoglobin Estim Average Glucose Calcium 8.9 Total Bilirubin 0.8 AST 60 H ALT 60 Alkaline Phosphatase 85 Total Protein 6.4 L Albumin 3.9 Globulin 2.5 Albumin/Globulin Ratio 1.6 Lipase 40 Serum Ketones NEGATIVE 03/14/19 03/14/19 13:59 14:00 WBC RBC Hgb Hct MCV MCH MCHC RDW Plt Count MPV Neut # (Auto) Lymph # (Auto) [place] # (Auto) Eos # (Auto) Baso # (Auto) Absolute Nucleated RBC Nucleated RBC % VBG pH 7.382 VBG pCO2 48.0 VBG pO2 31.0 VBG HCO3 27.9 VBG Total CO2 29.4 H VBG O2 Saturation 65.1 VBG Base Excess 1.9 Sodium Potassium Chloride Carbon Dioxide Anion Gap BUN Creatinine Estimated GFR (MDRD) Glucose POC Whole Bld Glucose Glycated Hemoglobin 13.0 H Estim Average Glucose 326 H Calcium Total Bilirubin AST ALT Alkaline Phosphatase Total Protein Albumin Globulin Albumin/Globulin Ratio Lipase Serum Ketones PD MEDICAL DECISION MAKING - ED course Complexity details: reviewed results, re-evaluated patient, considered differential, d/w patient ED course: Blood sugar improved with IV fluids and insulin. No evidence of DKA or honk's. She is picking up her prescription on the way home. Patient is well-appearing, nontoxic. Patient counseled regarding signs and symptoms for which I believe and urgent re-evaluation would be necessary. Patient with good understanding of and agreement to plan and is comfortable going home at this time This document was made in part using voice recognition software. While efforts are made to proofread this document, sound alike and grammatical errors may occur. 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 Return if you worsen. Drink plenty of water at home. Discharge Date/Time: 03/14/19 15:41
[2019-03-14 14:19] VITALS: BP 110/82
[2019-03-14 14:21] LABS: KETONES, SERUM (ACETEST) NEGATIVE (NEGATIVE)
[2019-03-14 14:26] LABS: ALBUMIN 3.9 g/dL (3.2-5.5); ALBUMIN/GLOBULIN RATIO 1.6 (1.0-2.2); ALKALINE PHOSPHATASE 85 IU/L (42-121); ALT ALANINE AMINOTRANSFERASE 60 IU/L (10-60); AST ASPARTATE AMINOTRANSFERASE 60 IU/L (10-42); BILIRUBIN,TOTAL 0.8 mg/dL (0.2-1.0); BUN - BLOOD UREA NITROGEN 12 mg/dL (6-20); CALCIUM 8.9 mg/dL (8.5-10.3); CARBON DIOXIDE - CO2 27 mmol/L (21-32); CHLORIDE 95 mmol/L (101-111); CREATININE 1.1 mg/dL (0.4-1.0); GFR - MDRD 50 (>89); GLUCOSE 476 mg/dL (70-100); LIPASE 40 U/L (22-51); SODIUM 132 mmol/L (135-145); TOTAL PROTEIN 6.4 g/dL (6.7-8.2)
[2019-03-14 15:05] LABS: HB2 TOTAL 16.4 g/dL; HEMOGLOBIN A1C 1.94 g/dL
== END 2019-03-14 15:41 | disposition home or self-care (01) ==
LOC: ED 13:28
DX: E11.65 Type 2 diabetes mellitus with hyperglycemia (principal); Z79.84 Long term (current) use of oral hypoglycemic drugs; I10 Essential (primary) hypertension; Z79.02 Long term (current) use of antithrombotics/antiplatelets
CPT/HCPCS: 36415; 80053; 82009; 82803; 83036; 83690; 85025; 96360; 96361; 99283; 99284; J1815

== ENCOUNTER 2019-04-25 14:30 | Outpatient (CLI) | payer MEDICARE, OTHER ==
--- NOTE | 2019-04-28 01:18 | Ultrasound Report ---
Reason: LEG PAIN Procedure Date: 04/25/2019 Accession Number: [id number] / [id number] Procedure: US - Duplex Lwr Ext Arterial Bilat CPT Code: Final Report FULL RESULT: EXAM: Bilateral Lower Extremity Arterial Doppler Ultrasound EXAM DATE: 04/25/2019 03:48 PM. CLINICAL HISTORY: Leg pain. Claudication since 2014. Diabetes. COMPARISON: None. TECHNIQUE: Real-time sonographic vascular imaging was performed by the hot shot, utilizing color-flow, Doppler flow, and spectral analysis. Multiple associate sales representative static images were saved for review. FINDINGS: Right Lower Extremity: CHALK TESTER: PSV 138 cm/sec, triphasic waveform. PSFA: PSV 158 cm/sec, triphasic waveform. MSFA: PSV 137 cm/sec, triphasic waveform. DSFA: PSV 88 cm/sec, biphasic waveform. PFA: PSV 113 cm/sec, biphasic waveform. POP: PSV 63 cm/sec, biphasic waveform. MARLENA: PSV 43 cm/sec, biphasic waveform. CLOTH FEEDER: PSV 39 cm/sec, biphasic waveform. QUENTIN: PSV 46 cm/sec, biphasic waveform. DPA: PSV 62 cm/sec, biphasic waveform. Left Lower Extremity: CHALK TESTER: PSV 131 cm/sec, biphasic waveform. PSFA: PSV 115 cm/sec, biphasic waveform. MSFA: PSV 171 cm/sec, biphasic waveform. DSFA: PSV 88 cm/sec, biphasic waveform. PFA: PSV 111 cm/sec, biphasic waveform. POP: PSV 53 cm/sec, biphasic waveform. MARLENA: PSV 35 cm/sec, biphasic waveform. CLOTH FEEDER: PSV 38 cm/sec, biphasic waveform. QUENTIN: PSV 35 cm/sec, biphasic waveform. DPA: PSV 31 cm/sec, biphasic waveform. IMPRESSION: No evidence for hemodynamically significant stenosis or occlusion. See above. RADIA
== END 2019-04-25 14:31 | disposition home or self-care (01) ==
LOC: DI 14:30
PROVIDERS: ATTEND Family Medicine
DX: M79.606 Pain in leg, unspecified (principal)
CPT/HCPCS: 93925

== ENCOUNTER 2020-01-22 09:01 | Outpatient (CLI) | payer MEDICARE, OTHER ==
[2020-01-22 14:41] LABS: BASOPHILS # (AUTO) 0.1 10^3/uL (0.0-0.1); BASOPHILS % (AUTO) 0.8 %; EOSINOPHILS # (AUTO) 0.2 10^3/uL (0.0-0.7); EOSINOPHILS % (AUTO) 1.6 %; HGB - HEMOGLOBIN 16.6 g/dL (12.0-16.0); LYMPHOCYTES # (AUTO) 3.8 10^3/uL (1.5-3.5); LYMPHOCYTES % (AUTO) 29.3 %; MEAN CORPUSCULAR HEMOGLOBIN 31.1 pg (27.0-31.0); MEAN CORPUSCULAR HGB CONC 32.5 g/dL (32.0-36.0); MEAN CORPUSCULAR VOLUME 95.7 fL (81.0-99.0); MEAN PLATELET VOLUME 14.3 fL (7.9-10.8); MONOCYTES # (AUTO) 0.7 10^3/uL (0.0-1.0); MONOCYTES % (AUTO) 5.4 %; NEUTROPHILS % (AUTO) 62.3 %; PLT - PLATELET COUNT 216 10^3/uL (130-450); RED BLOOD COUNT 5.34 10^6/uL (4.20-5.40); RED CELL DISTRIBUTION WIDTH 13.3 % (12.0-15.0); WHITE BLOOD COUNT 12.9 x10^3/uL (4.8-10.8)
[2020-01-22 15:25] LABS: BUN - BLOOD UREA NITROGEN 12 mg/dL (6-20); CALCIUM 9.2 mg/dL (8.5-10.3); CARBON DIOXIDE - CO2 27 mmol/L (21-32); CHLORIDE 102 mmol/L (101-111); CHOL/HDL RATIO 6.9 (<4.4); CHOLESTEROL 262 mg/dL; CREATININE 0.6 mg/dL (0.4-1.0); GLUCOSE 195 mg/dL (70-100); HDL CHOLESTEROL 38 mg/dL; LDL CHOLESTEROL,CALCULATED 169 mg/dL; LDL/HDL RATIO 4.4 (<4.4); SODIUM 139 mmol/L (135-145); VLDL CHOLESTEROL 55 mg/dL
[2020-01-22 15:28] LABS: CREATININE,URINE 370.7 mg/dL; MICROALBUMIN,URINE 3.7 mg/dL (0-300.0)
[2020-01-22 19:45] LABS: HEMOGLOBIN A1c% 13.4 % (4.27-6.07)
== END 2020-01-22 09:02 | disposition home or self-care (01) ==
LOC: LAB.S 09:01
PROVIDERS: ATTEND Physician Assistant
DX: Z00.00 Encounter for general adult medical examination without abnormal findings (principal); E11.9 Type 2 diabetes mellitus without complications; I10 Essential (primary) hypertension; Z86.39 Personal history of other endocrine, nutritional and metabolic disease; I25.10 Atherosclerotic heart disease of native coronary artery without angina pectoris; J44.9 Chronic obstructive pulmonary disease, unspecified
CPT/HCPCS: 36415; 80048; 80061; 82043; 82570; 83036; 83721; 84443; 85025

== ENCOUNTER 2020-02-26 14:26 | Outpatient (CLI) | payer MEDICARE, OTHER ==
--- NOTE | 2020-02-26 16:35 | XRAY Report ---
PROCEDURE: Spine Entire AP/LAT INDICATIONS: LOW BACK PX TECHNIQUE: 6 view(s) of the cervical, thoracic, and lumbosacral spine acquired. COMPARISON: Prior spine evaluation studies are not available for review. FINDINGS: Bones: No fractures or dislocations. No suspicious bony lesions. Note is made of prior C5-C7 anter ior fusion plating, without evidence of device loosening or disruption. More inferiorly along the tho racic spine a compression fracture is not seen. Mild degenerative disc disease is present as expected for age. Overlying anterior sternal cerclage wires suggest prior CABG. The lumbosacral spine evaluation shows near normal appearance over the upper half of the LS-spine and with only a mild degree of degenerative disc height reduction at L4-5 and L5-S1. Facet osteoarthriti s is minimal at L3-4, mild at L4-5 and mild to moderate at L5-S1. No subluxation. Soft tissues: No suspicious soft tissue calcifications. IMPRESSION: Degenerative changes as discussed, postoperative change is noted at the mid to lower cervical spine. No evidence of device loosening or disruption. No definite spinal or foraminal stenosis. No compressi on fracture found. Reviewed by: Segun Aguayo MD on 02/26/2020 4:34 PM PST Approved by: Segun Aguayo MD on 02/26/2020 4:34 PM PST Station ID: [id number]
== END 2020-02-26 14:27 | disposition home or self-care (01) ==
LOC: DI.S 14:26
PROVIDERS: ATTEND Physician Assistant
DX: M47.816 Spondylosis without myelopathy or radiculopathy, lumbar region (principal); M50.30 Other cervical disc degeneration, unspecified cervical region; Z98.1 Arthrodesis status

== ENCOUNTER 2020-09-02 15:14 | Outpatient (CLI) | payer MEDICARE, OTHER ==
[2020-09-02 21:16] LABS: ESTIMATED AVERAGE GLUCOSE 209 mg/dL (70-100); HEMOGLOBIN A1c% 8.9 % (4.27-6.07)
== END 2020-09-02 15:15 | disposition home or self-care (01) ==
LOC: LAB.S 15:14
PROVIDERS: ATTEND Nurse Practitioner
DX: E11.65 Type 2 diabetes mellitus with hyperglycemia (principal)
CPT/HCPCS: 36415; 83036